=== PATIENT | male | born 1940 | race Caucasian/White ===

== ENCOUNTER 2017-06-08 11:52 | Outpatient (CLI) | payer MEDICARE, OTHER ==
[2017-06-08 12:11] LABS: Hematocrit 36.9 % (35.5-45.6); Hemoglobin 12.4 gm/dl (11.8-15.2)
[2017-06-08 12:32] LABS: Calcium 9.1 mg/dL (8.4-10.2); Chloride 100.7 mmol/L (98-107); Phosphorous 3.5 mg/dL (2.5-4.5)
== END 2017-06-08 11:53 | disposition home or self-care (01) ==
LOC: LAB 11:52
PROVIDERS: ATTEND Internal Medicine Nephrology
DX: I12.9 Hypertensive chronic kidney disease with stage 1 through stage 4 chronic kidney disease, or unspecified chronic kidney disease (principal); N18.2 Chronic kidney disease, stage 2 (mild); E11.22 Type 2 diabetes mellitus with diabetic chronic kidney disease; E87.5 Hyperkalemia; E87.2 Acidosis
CPT/HCPCS: 36415; 80048; 82040; 84100; 85014; 85018

== ENCOUNTER 2018-05-10 14:09 | Outpatient (CLI) | payer MEDICARE, OTHER ==
[2018-05-10 14:50] LABS: Calcium 9.7 mg/dL (8.4-10.2)
== END 2018-05-10 14:10 | disposition home or self-care (01) ==
LOC: LAB 14:09
PROVIDERS: ATTEND Internal Medicine Nephrology
DX: I12.9 Hypertensive chronic kidney disease with stage 1 through stage 4 chronic kidney disease, or unspecified chronic kidney disease (principal); E11.22 Type 2 diabetes mellitus with diabetic chronic kidney disease; N18.3 Chronic kidney disease, stage 3 (moderate); E87.5 Hyperkalemia; E87.2 Acidosis; E78.00 Pure hypercholesterolemia, unspecified; I48.91 Unspecified atrial fibrillation; M19.90 Unspecified osteoarthritis, unspecified site; E03.9 Hypothyroidism, unspecified
CPT/HCPCS: 36415; 80048